=== PATIENT | female | born 1960 | race Caucasian/White ===

== ENCOUNTER → 2020-02-18 | Outpatient (CLI) | payer MEDICAID ==
[~2020-02-18] MED LIST: ACET300T4 PO; ASPITAB34 PO; ATOR20TA PO; BLACCAP2 OR; BUPR75TA9 PO; CARB0.5D8 EACHEYE; CITA-77 PO; DIPH2.5T73 PO; ESCI20TA PO; GABA300C10 PO; HYDR25SU13 RE; LAMO100T44 PO; LISI-275 PO; LORA1TAB23 PO; MECL12.5 PO; NAPR500T31 PO; ONDA-144 PO; ROPI1TAB2 PO; SENN25TA9 PO; TOLT4CAP12 PO; ZIPR80CA8 PO; [UNRECOGNIZED DRUG - CODE] PO
== END | disposition home or self-care (01) ==
LOC: Rad HDHVI 14:43
PROVIDERS: ATTEND Internal Medicine Cardiovascular Disease
DX: I35.1 Nonrheumatic aortic (valve) insufficiency (principal); R07.9 Chest pain, unspecified; R42 Dizziness and giddiness
CPT/HCPCS: 93306

== ENCOUNTER → 2020-03-24 | Outpatient (CLI) | payer OTHER, MEDICAID ==
[~2020-03-24] MED LIST changes: +TOLT4CAP PO; -TOLT4CAP12 PO; +ZIPR80CA37 PO; -ZIPR80CA8 PO
== END | disposition home or self-care (01) ==
LOC: Rad HDHVI 09:59
PROVIDERS: ATTEND Internal Medicine
DX: G25.81 Restless legs syndrome (principal); G20 Parkinson's disease
CPT/HCPCS: 93925